=== PATIENT | male | born 1975 | race Caucasian/White ===

== ENCOUNTER 2017-08-10 20:42 | Inpatient (IN) | payer MEDICAID ==
[2017-08-10] MEDS: ONDANSETRON 4 MG INJ IV (22:15)
[2017-08-10] MEDS: ACETAMINOPHEN 325 MG TAB PO (22:15)
[2017-08-10] MEDS: morphine 4 MG/ML VIAL IV (22:15)
[2017-08-10] MEDS: SOD CHLORIDE 0.9% 1,000 ML IV (22:16)
[2017-08-10 22:46] LABS: ADD MAN DIFF? NO
[2017-08-10 22:49] LABS: BASOPHILS % 0.1 % (0.0-2.0); EOSINOPHILS % 0.1 % (0.0-7.0); HEMATOCRIT 35.8 % (42.0-52.0); LYMPHOCYTES # 0.8 10^3/ul (0.8-2.9); LYMPHOCYTES % 4.4 % (15.0-51.0); MEAN CORPUSCULAR HEMOGLOBIN 29.7 pg (29.0-33.0); MEAN CORPUSCULAR HGB CONC 33.5 g/dl (32.0-37.0); MEAN CORPUSCULAR VOLUME 88.6 fl (82.0-101.0); MEAN PLATELET VOLUME 11.3 fl (7.4-10.4); MONOCYTES % 5.9 % (0.0-11.0); NEUTROPHIL # 15.5 10^3/ul (1.6-7.5); PLATELET COUNT 359 10^3/UL (140-415); RED BLOOD COUNT 4.04 10^6/ul (4.70-6.10); RED CELL DISTRIBUTION WIDTH 12.5 % (11.5-14.5)
[2017-08-10 22:49] LABS: WHITE BLOOD COUNT 17.4 10^3/ul (4.8-10.8)
[2017-08-10 23:10] LABS: ALANINE AMINOTRANSFERASE 59 IU/L (13-69); ALBUMIN 4.6 g/dl (3.3-4.9); ALBUMIN/GLOBULIN RATIO 1.27; ALKALINE PHOSPHATASE 101 IU/L (42-121); ANION GAP 20 (8-16); ASPARTATE AMINO TRANSFERASE 39 IU/L (15-46); BILIRUBIN,INDIRECT 0.3 mg/dl (0-1.1); BILIRUBIN,TOTAL 0.3 mg/dl (0.2-1.3); BLOOD UREA NITROGEN 37 mg/dl (7-20); CALCIUM 9.9 mg/dl (8.4-10.2); CARBON DIOXIDE 24 mmol/L (21-31); CHLORIDE 104 mmol/L (97-110); CREATININE 1.49 mg/dl (0.61-1.24); GLUCOSE 257 mg/dl (70-220); LIPASE 59 U/L (23-300); POTASSIUM 4.8 mmol/L (3.5-5.1); SODIUM 143 mmol/L (135-144); TOTAL PROTEIN 8.2 g/dl (6.1-8.1)
[2017-08-11] MEDS: PIPER-TAZO 3.375 GM IV (PMX) 100 ML IVPB ×4 (00:09→17:30)
[2017-08-11] MEDS ORDERED: BISACODYL (EC) 5 MG TAB PO (02:00)
[2017-08-11] MEDS ORDERED: DOCUSATE SODIUM 100 MG CAP PO (02:00)
[2017-08-11] MEDS ORDERED: ACETAMINOPHEN 325 MG TAB PO (02:00)
[2017-08-11] MEDS ORDERED: NACL 0.9% 3 ML SYG IV (02:00)
[2017-08-11] MEDS: SOD CHLORIDE 0.9% 1,000 ML IV ×3 (02:08→22:04)
[2017-08-11 02:32] LABS: ADD UMIC YES; UR ASCORBIC ACID NEGATIVE (NEGATIVE); UR BACTERIA FEW /HPF (NONE SEEN); UR BILIRUBIN (Dip) NEGATIVE (NEGATIVE); UR BLOOD (Dip) NEGATIVE (NEGATIVE); UR CLARITY CLEAR (CLEAR); UR COLOR YELLOW (YELLOW); UR GLUCOSE (Dip) 2+ mg/dL (NEGATIVE); UR KETONES (Dip) NEGATIVE (NEGATIVE); UR LEUKOCYTE ESTERASE (Dip) NEGATIVE Leu/ul (NEGATIVE); UR NITRITE (Dip) NEGATIVE (NEGATIVE); UR RBC 0 /HPF (0-5); UR SPECIFIC GRAVITY (Dip) 1.016 (1.003-1.030); UR TOTAL PROTEIN (Dip) 1+ mg/dl (NEGATIVE); UR UROBILINOGEN (Dip) NEGATIVE (NEGATIVE); UR WBC 2 /HPF (0-5)
[2017-08-11 06:07] LABS: ADD MAN DIFF? NO
[2017-08-11 06:18] LABS: WHITE BLOOD COUNT 18.1 10^3/ul (4.8-10.8)
[2017-08-11 06:18] LABS: BASOPHILS % 0.2 % (0.0-2.0); EOSINOPHILS % 0.1 % (0.0-7.0); HEMOGLOBIN 10.9 g/dl (14.0-18.0); LYMPHOCYTES # 2.3 10^3/ul (0.8-2.9); LYMPHOCYTES % 12.9 % (15.0-51.0); MEAN CORPUSCULAR HEMOGLOBIN 29.6 pg (29.0-33.0); MEAN CORPUSCULAR VOLUME 89.7 fl (82.0-101.0); MEAN PLATELET VOLUME 10.9 fl (7.4-10.4); MONOCYTE # 1.3 10^3/ul (0.3-0.9); MONOCYTES % 7.1 % (0.0-11.0); NEUTROPHIL # 14.4 10^3/ul (1.6-7.5); NEUTROPHILS % 79.3 % (39.0-77.0); PLATELET COUNT 319 10^3/UL (140-415); RED BLOOD COUNT 3.68 10^6/ul (4.70-6.10); RED CELL DISTRIBUTION WIDTH 12.6 % (11.5-14.5)
[2017-08-11 06:43] LABS: ALANINE AMINOTRANSFERASE 55 IU/L (13-69); ALBUMIN 3.9 g/dl (3.3-4.9); ALBUMIN/GLOBULIN RATIO 1.25; ALKALINE PHOSPHATASE 80 IU/L (42-121); ANION GAP 16 (8-16); ASPARTATE AMINO TRANSFERASE 34 IU/L (15-46); BILIRUBIN,INDIRECT 0.4 mg/dl (0-1.1); BILIRUBIN,TOTAL 0.4 mg/dl (0.2-1.3); BLOOD UREA NITROGEN 31 mg/dl (7-20); CALCIUM 8.8 mg/dl (8.4-10.2); CARBON DIOXIDE 26 mmol/L (21-31); CHLORIDE 107 mmol/L (97-110); CHOL/HDL RATIO 4.1 RATIO; CHOLESTEROL 157 mg/dl (100-200); GLUCOSE 258 mg/dl (70-220); HDL CHOLESTEROL 38 mg/dl (27-67); LDL CHOLESTEROL,CALCULATED 104 mg/dl; MAGNESIUM 1.3 mg/dl (1.7-2.5); POTASSIUM 4.9 mmol/L (3.5-5.1); SODIUM 144 mmol/L (135-144); TRIGLYCERIDES 74 mg/dl (0-149)
[2017-08-11] MEDS ORDERED: BUPIVACAINE 0.25%/EPI (MDV) 50 ML VIAL INJ (07:00)
[2017-08-11] MEDS ORDERED: ROCURONIUM 50 MG INJ (07:00)
[2017-08-11] MEDS ORDERED: LIDOCAINE 2% (SDV) 5 ML INJ (07:00)
[2017-08-11 07:51] LABS: HEMOGLOBIN A1C 10.8 % (0-5.9)
[2017-08-11] MEDS ORDERED: GLUCOSE GEL 15 GRAM TUBE PO ×2 (10:00)
[2017-08-11] MEDS ORDERED: GLUCOSE GEL 15 GRAM TUBE BUCCAL (10:00)
[2017-08-11] MEDS ORDERED: DEXTROSE 50% 50 ML SYRINGE IV ×2 (10:00)
[2017-08-11] MEDS ORDERED: GLUCAGON 1 MG INJ IM (10:00)
[2017-08-11] MEDS: morphine 2 MG INJ IV ×2 (10:15→21:23)
[2017-08-11] MEDS: INSULIN ASPART [NOVOLOG] 3 ML PEN SC ×5 (10:15→21:19)
[2017-08-11] MEDS: MAGNESIUM SULFATE 3 GM in DEXTROSE 5% 100 ML IVPB (13:28)
[2017-08-11] MEDS ORDERED: FENTAnyl 50 MCG/ML VIAL (13:59)
[2017-08-11] MEDS: LIDOCAINE 1% (MPF) 30 ML INJ (14:35)
[2017-08-11] MEDS ORDERED: ROPIVACAINE 0.5 % 30 ML VIAL (14:55)
[2017-08-11] MEDS ORDERED: PROPOFOL 20 ML (14:55)
[2017-08-11] MEDS ORDERED: SUGAMMADEX SODIUM 200 MG/2 ML VIAL IV (15:11)
[2017-08-11] MEDS: hydrALAzine 20 MG INJ IV (15:56)
[2017-08-11] MEDS ORDERED: MIDAZOLAM 1 MG/ML 2 ML INJ IV (16:00)
[2017-08-11] MEDS ORDERED: HYDROmorphONE (0.2 MG/ML) 10ML SYG IV ×2 (16:00)
[2017-08-11] MEDS ORDERED: ALBUTEROL 0.083% (NEB) 2.5 MG/3 ML AMP HHN (16:00)
[2017-08-11] MEDS ORDERED: OXYCODONE/ACETAMINOPHEN (5/325) TAB PO ×2 (16:00)
[2017-08-11] MEDS ORDERED: MEPERIDINE 25 MG INJ IV (16:00)
[2017-08-11] MEDS ORDERED: METOCLOPRAMIDE 10 MG INJ IV (16:00)
[2017-08-11] MEDS ORDERED: KETOROLAC 30 MG INJ IV (16:00)
[2017-08-11] MEDS ORDERED: ONDANSETRON 4 MG INJ IV (16:00)
[2017-08-11] MEDS ORDERED: LABETALOL HCL 20MG INJ IV (16:00)
[2017-08-11] MEDS ORDERED: DIPHENHYDRAMINE 50 MG INJ IV (16:00)
[2017-08-11] MEDS ORDERED: EPHEDrine SULFATE 50 MG/5 ML SYG IV (16:00)
[2017-08-11] MEDS ORDERED: FENTAnyl 50 MCG/ML VIAL IV ×3 (16:00)
[2017-08-11] MEDS: HYDROmorphONE (0.2 MG/ML) 10ML SYG IV (16:48)
[2017-08-11] MEDS: ONDANSETRON 4 MG INJ IV (16:49)
[2017-08-11] MEDS: INSULIN GLARGINE [LANtus] 3 ML PEN SC (21:20)
[2017-08-12] MEDS: PIPER-TAZO 3.375 GM IV (PMX) 100 ML IVPB ×4 (00:03→17:39)
[2017-08-12] MEDS: morphine 2 MG INJ IV ×2 (01:29→07:45)
[2017-08-12] MEDS ORDERED: ACCU-CHEK XX (02:00)
[2017-08-12] MEDS: ACCU-CHEK XX (02:00)
[2017-08-12 05:21] LABS: ADD MAN DIFF? NO
[2017-08-12 05:25] LABS: BASOPHILS % 0.2 % (0.0-2.0); EOSINOPHILS % 0.1 % (0.0-7.0); HEMATOCRIT 33.4 % (42.0-52.0); HEMOGLOBIN 10.7 g/dl (14.0-18.0); LYMPHOCYTES # 1.6 10^3/ul (0.8-2.9); MEAN CORPUSCULAR HEMOGLOBIN 29.4 pg (29.0-33.0); MEAN CORPUSCULAR VOLUME 91.8 fl (82.0-101.0); MEAN PLATELET VOLUME 11.1 fl (7.4-10.4); MONOCYTE # 0.6 10^3/ul (0.3-0.9); MONOCYTES % 5.1 % (0.0-11.0); NEUTROPHIL # 9.4 10^3/ul (1.6-7.5); NEUTROPHILS % 80.3 % (39.0-77.0); PLATELET COUNT 312 10^3/UL (140-415); RED BLOOD COUNT 3.64 10^6/ul (4.70-6.10); RED CELL DISTRIBUTION WIDTH 12.7 % (11.5-14.5)
[2017-08-12 05:25] LABS: WHITE BLOOD COUNT 11.7 10^3/ul (4.8-10.8)
[2017-08-12 05:40] LABS: PHOSPHORUS 3.1 mg/dl (2.5-4.9)
[2017-08-12 05:40] LABS: MAGNESIUM 1.9 mg/dl (1.7-2.5)
[2017-08-12 05:44] LABS: ALANINE AMINOTRANSFERASE 53 IU/L (13-69); ALBUMIN 3.8 g/dl (3.3-4.9); ALBUMIN/GLOBULIN RATIO 1.26; ALKALINE PHOSPHATASE 81 IU/L (42-121); ANION GAP 16 (8-16); ASPARTATE AMINO TRANSFERASE 33 IU/L (15-46); BILIRUBIN,INDIRECT 0.2 mg/dl (0-1.1); BILIRUBIN,TOTAL 0.2 mg/dl (0.2-1.3); BLOOD UREA NITROGEN 18 mg/dl (7-20); CALCIUM 8.9 mg/dl (8.4-10.2); CARBON DIOXIDE 27 mmol/L (21-31); CHLORIDE 110 mmol/L (97-110); GLUCOSE 156 mg/dl (70-220); POTASSIUM 4.7 mmol/L (3.5-5.1); SODIUM 148 mmol/L (135-144); TOTAL PROTEIN 6.8 g/dl (6.1-8.1)
[2017-08-12] MEDS: INSULIN ASPART [NOVOLOG] 3 ML PEN SC ×5 (07:50→20:49)
[2017-08-12] MEDS: SOD CHLORIDE 0.9% 1,000 ML IV (09:03)
[2017-08-12 11:14] LABS: IRON 26 ug/dl (35-150)
[2017-08-12 11:24] LABS: % IRON SATURATION 7 % SAT (22-52); TOTAL IRON BINDING CAPACITY 396 ug/dl (241-421)
[2017-08-12] MEDS: morphine LIQ (10 MG/5 ML) CUP PO ×2 (12:51→19:19)
[2017-08-12] MEDS: INSULIN GLARGINE [LANtus] 3 ML PEN SC (20:50)
[2017-08-13] MEDS: morphine LIQ (10 MG/5 ML) CUP PO ×3 (01:32→15:14)
[2017-08-13] MEDS: ACCU-CHEK XX (02:26)
[2017-08-13] MEDS: PIPER-TAZO 3.375 GM IV (PMX) 100 ML IVPB ×3 (05:34→12:09)
[2017-08-13 05:51] LABS: ADD MAN DIFF? NO
[2017-08-13 06:01] LABS: BASOPHILS % 0.2 % (0.0-2.0); EOSINOPHILS # 0.1 10^3/ul (0.0-0.5); EOSINOPHILS % 1.2 % (0.0-7.0); HEMATOCRIT 33.3 % (42.0-52.0); HEMOGLOBIN 10.8 g/dl (14.0-18.0); LYMPHOCYTES % 22.2 % (15.0-51.0); MEAN CORPUSCULAR HEMOGLOBIN 29.1 pg (29.0-33.0); MEAN CORPUSCULAR HGB CONC 32.4 g/dl (32.0-37.0); MEAN CORPUSCULAR VOLUME 89.8 fl (82.0-101.0); MEAN PLATELET VOLUME 11.3 fl (7.4-10.4); MONOCYTE # 0.6 10^3/ul (0.3-0.9); MONOCYTES % 6.5 % (0.0-11.0); NEUTROPHIL # 6.3 10^3/ul (1.6-7.5); NEUTROPHILS % 69.6 % (39.0-77.0); PLATELET COUNT 320 10^3/UL (140-415); RED BLOOD COUNT 3.71 10^6/ul (4.70-6.10); RED CELL DISTRIBUTION WIDTH 12.6 % (11.5-14.5)
[2017-08-13 06:01] LABS: WHITE BLOOD COUNT 9.1 10^3/ul (4.8-10.8)
[2017-08-13 06:18] LABS: PHOSPHORUS 3.5 mg/dl (2.5-4.9)
[2017-08-13 06:18] LABS: MAGNESIUM 1.5 mg/dl (1.7-2.5)
[2017-08-13 06:29] LABS: ALANINE AMINOTRANSFERASE 42 IU/L (13-69); ALBUMIN 3.6 g/dl (3.3-4.9); ALBUMIN/GLOBULIN RATIO 1.05; ALKALINE PHOSPHATASE 75 IU/L (42-121); ANION GAP 14 (8-16); ASPARTATE AMINO TRANSFERASE 22 IU/L (15-46); BILIRUBIN,INDIRECT 0.1 mg/dl (0-1.1); BILIRUBIN,TOTAL 0.1 mg/dl (0.2-1.3); BLOOD UREA NITROGEN 17 mg/dl (7-20); CALCIUM 9.5 mg/dl (8.4-10.2); CARBON DIOXIDE 29 mmol/L (21-31); CHLORIDE 106 mmol/L (97-110); CREATININE 1.02 mg/dl (0.61-1.24); GLUCOSE 201 mg/dl (70-220); POTASSIUM 4.5 mmol/L (3.5-5.1); SODIUM 144 mmol/L (135-144)
[2017-08-13] MEDS: INSULIN ASPART [NOVOLOG] 3 ML PEN SC ×4 (09:06→12:50)
[2017-08-13] MEDS: MAGNESIUM SULFATE 2 GM/50 ML 50 ML IVPB (12:46)
[2017-08-13 15:02] LABS: CREATININE, RANDOM URINE 170 mg/dL (20-370); MICROALBUMIN 16.5 mg/dL; MICROALBUMIN/CREATININE RATIO 97 (<30)
== END 2017-08-13 17:00 | disposition home or self-care (01) | DRG 339 ==
LOC: FTE 20:42 → MS1 08-11 01:22
PROC: 0DTJ4ZZ Resection of Appendix, Percutaneous Endoscopic Approach (ICD-10-PCS; principal; 2017-08-11 12:10)
PROC: 0WQF0ZZ Repair Abdominal Wall, Open Approach (ICD-10-PCS; 2017-08-11 12:10)
DX: K35.3 Acute appendicitis with localized peritonitis (principal); N17.9 Acute kidney failure, unspecified; K43.9 Ventral hernia without obstruction or gangrene; E11.9 Type 2 diabetes mellitus without complications; E78.5 Hyperlipidemia, unspecified; D64.9 Anemia, unspecified; E83.42 Hypomagnesemia; N43.3 Hydrocele, unspecified
CPT/HCPCS: 36415; 71045; 74176; 76870; 80053; 80061; 81001; 82043; 82728; 82962; 83036; 83540; 83690; 83735; 84100; 84443; 85025; 88304; 93005; 96365; 96366; 96372; 96375; 96376; 99285-25